=== PATIENT | female | born 1980 ===

== ENCOUNTER 2021-11-07 05:55 | Day surgery (SDC) | payer OTHER ==
[2021-11-07] MEDS ORDERED: PERCOCET 5-3251 EACH PO (13:02)
== END 2021-11-07 14:20 | disposition home or self-care (01) ==
LOC: CIR.AMB 05:55
PROVIDERS: ATTEND Surgery
DX: K60.3 Anal fistula (principal); K62.89 Other specified diseases of anus and rectum; K62.5 Hemorrhage of anus and rectum; Z20.822 Contact with and (suspected) exposure to COVID-19; Z91.013 Allergy to seafood; E66.01 Morbid (severe) obesity due to excess calories